=== PATIENT | female | born 1990 | race Native Hawaiian/Other Pacific Islander ===

== ENCOUNTER 2019-07-07 14:04 | Emergency (ER) | payer OTHER ==
[~2019-07-07] VITALS: Ht 170.2 cm; Wt 74.8 kg
--- NOTE | 2019-07-07 14:15 | NUR ---
Patient is AOx4, speaking in complete sentences, speech is clear. Patient is able to follow /comprehend directions. Gait is stable. No cardiovascular distress noted. Rate and rhythm are regular. No CP. No respiratory distress noted. Respirations even & unlabored with symmetrical chest rise. No adventitious sounds noted. Chief complaint: COVID SCREENING Patient denies Fever/Chills at this time but states 100.7F 2 days ago. No recent travel. 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 Monitored accordingly Placed on Isolation/Droplet Precautions per hospital policy Kept comfortable
--- NOTE | 2019-07-07 14:50 | NUR ---
Patient discharged to home in stable condition. Written and verbal after care instructions given. Patient verbalizes understanding of instructions. Stressed follow up or return to ER for worsening s/s. ambulatory w/ stable gait all belongings w/ pt
[2019-07-07 14:54] VITALS: BP 116/84
== END 2019-07-07 14:54 | disposition home or self-care (01) ==
LOC: ER 14:12
DX: R50.9 Fever, unspecified (principal); Z20.828 Contact with and (suspected) exposure to other viral communicable diseases
CPT/HCPCS: A4663